=== PATIENT | male | born 1965 | race Caucasian/White ===

== ENCOUNTER 2024-05-27 15:09 | Outpatient (REF) | payer OTHER, SELFPAY ==
--- NOTE | 2024-05-30 08:57 | MHC.AU.HA1 ---
Hearing Aid Evaluation Date of Visit: 05/27/24 Historical Information: Description of Hearing: Right Ear: Mild sensorineural hearing loss at 4 kHz only Left Ear: Profound sensorineural hearing loss - No measurable hearing Summary: Provided hearing test and medical clearance from [facility]. Reportedly experienced sudden hearing loss in left ear about 7 weeks ago. Still waiting for MRI to be scheduled. No known etiology at this time. Significant left-sided tinnitus, varying in intensity, can be bothersome. Now experiences difficulty localizing sounds, hearing speakers on his left side, and fully understanding conversations, especially in adverse listening environments. Discussed different amplification options as written on audiogram from ENT (CI, OSIA, CROS). Lalo opted to trial CROS at this time, as he is not ready to consider any surgeries. Explained how CROS system works, importance of consistent use, and acclimatization period. Interested in rechargeable even after discussing battery life and wants compatibility with iPhone. Hearing Aid Prescription: Based on the individual?s shared listening needs, communication environments, dexterity, desire for connectivity, and personal preferences, the following prescription for amplification has been made: Right ear: Make, Model, Color: Oticon Real 2 miniRITE-R Color: Steel Alvarez Battery Size: Rechargeable Residential Tech/Slim Tube: 1/60 Type of Earmold/Dome/CShell/SlimTip: 8mm open wilson dome Left ear: Left ear prescription to be same as Right Hearing Aid above: Make, Model, Color: Oticon CROS PX-R Color: Steel Alvarez Battery Size: Rechargeable Residential Tech/Slim Tube: 1/60 Type of Earmold/Dome/CShell/SlimTip: 8mm open wilson dome Accessories/Assistive Technology: Arc Cutter Plasma Arc Plan of Care: Patient wishes to purchase hearing aids as prescribed Action Taken/Action Needed: Hearing Instrument Fitting to be scheduled when materials arrive Primary Diagnosis: H90.3 Bilateral Sensorineural Hearing Loss Signature: Provider: Kayla Candelaria, [facility]
== END 2024-05-27 15:10 | disposition home or self-care (01) ==
LOC: HO.HAP 15:09
PROVIDERS: Visit Provider Otolaryngology
DX: Z46.1 Encounter for fitting and adjustment of hearing aid (principal); H90.3 Sensorineural hearing loss, bilateral
CPT/HCPCS: 92591

== ENCOUNTER 2024-06-08 13:03 | Outpatient (REF) | payer OTHER, SELFPAY ==
--- NOTE | 2024-06-08 13:49 | MHC.AU.HA2 ---
Hearing Instrument Fitting- Adult- Binaural Date of Visit: 06/08/24 Hearing Instruments Dispensed: Right Ear: Make, Model, Color, Serial Number: Oticon Real 2 miniRITE-R SN: [id number] Color: Steel Alvarez Manager Labor Relations Repair Warranty: 06/29/2027 Manager Labor Relations Loss and Damage Warranty: 06/29/2027 [facility] Service Plan: 06/08/2025 Battery Size: Rechargeable Clinical Evaluator/Slim Tube: 1/60 Earmold/Dome/CShell/SlimTip: 6mm open wilson dome with retention tail Type of Wax Guard: miniFit Left Ear: Make, Model, Color, Serial Number: Oticon CROS PX-R SN: [id number] Color: Steel Alvarez Manager Labor Relations Repair Warranty: 06/29/2027 Manager Labor Relations Loss and Damage Warranty: 06/29/2027 [facility] Service Plan: 06/08/2025 Battery Size: Rechargeable Clinical Evaluator/Slim Tube: 1/60 Earmold/Dome/CShell/SlimTip: 6mm open wilson dome with retention tail Type of Wax Guard: miniFit Accessories/Assistive Technology: miniRITE Artificial Flowers Starcher SN: [id number] Summary of Fitting: Accompanied by , Lizy. Ran real ear measures. Comfortable at real ear settings. Discussed care, use, and rechargeability including manually turning on/off, changing domes and wax guards, and VC use. Practiced insertion and removal. Paired to cellphone. Explained Oticon Filler Wiper carlyle, which Lalo will download himself at home if he chooses to use it. Discussed importance of daily, consistent use in acclimating to sound quality, CROS functionality, and physical fit of hearing aids, as initially reported ears felt itchy with the hearing aids. Recommendations: A hearing instrument follow-up was scheduled. Diagnosis Code(s): Primary Diagnosis: H90.3 Bilateral Sensorineural Hearing Loss Signature: Provider: Kayla Candelaria, [facility]
== END 2024-06-08 13:04 | disposition home or self-care (01) ==
LOC: HO.HAP 13:03
PROVIDERS: Visit Provider Otolaryngology
DX: Z46.1 Encounter for fitting and adjustment of hearing aid (principal); H90.3 Sensorineural hearing loss, bilateral
CPT/HCPCS: V5011; V5020; V5221; V5240

== ENCOUNTER 2024-06-17 11:05 | Outpatient (REF) | payer OTHER, SELFPAY ==
--- NOTE | 2024-06-17 11:46 | MHC.AU.HA3 ---
Hearing Instrument Follow-Up- Binaural Date of Visit: 06/17/24 Right Ear: Juan, Model, Color, Serial Number: Oticon Real 2 miniRITE-R SN: [id number] Color: Steel Alvarez Log Check Scaler Repair Warranty: 06/29/2027 Log Check Scaler Loss and Damage Warranty: 06/29/2027 [facility] Service Plan: 06/08/2025 Battery Size: Rechargeable Rail Engineer/Slim Tube: 2/60 Earmold/Dome/CShell/SlimTip:6mm open wilson dome with retention tail Type of Wax Guard: miniFit Dispensed By: [facility] Date of Fittin06/08/2024 Left Ear: Make, Model, Color, Serial Number: Oticon CROS PX-R SN: [id number] Color: Steel Alvarez Log Check Scaler Repair Warranty: 06/29/2027 Log Check Scaler Loss and Damage Warranty: 06/29/2027 [facility] Service Plan: 06/08/2025 Battery Size: Rechargeable Rail Engineer/Slim Tube: 1/60 Earmold/Dome/CShell/SlimTip: 6mm open wilson dome with retention tail Type of Wax Guard: miniFit Dispensed By: [facility] Date of Fittin06/08/2024 Follow-Up Summary: Kiran reported significant benefit from hearing aids. Coworkers notice difference in hearing/responsiveness at work. Data logging showed about 13 hours of use per day. Two issues 1. Right hearing aid reportedly working its way out of the ear. 2. Some times difficulty hearing phone calls through hearing aid if additional environmental noise present. Switched to length 2 unit manager rn on right ear with noted improvement in comfort and security of fit. Adjusted Phone Loudness, M relative to Phone, and Sound Quality for phone streaming. Original follow up scheduled 06/22/2024 - Kiran will call to cancel if all is well with the changes made today. Recommendations: Hearing instrument follow-up or maintenance as needed. Please contact our clinic with any questions or concerns. Diagnosis Code(s): Primary Diagnosis: H90.3 Bilateral Sensorineural Hearing Loss Signature: Provider: Kayla Candelaria, [facility] [place]
== END 2024-06-17 11:06 | disposition home or self-care (01) ==
LOC: HO.HAP 11:05
PROVIDERS: PCP Internal Medicine; Visit Provider Otolaryngology
DX: Z13.89 Encounter for screening for other disorder (principal)